=== PATIENT | male | born 1995 | race American Indian/Alaskan Native ===

== ENCOUNTER 2018-03-19 22:15 | Emergency (ER) | payer OTHER ==
[2018-03-19 23:17] VITALS: BP 107/78
[2018-03-19] MEDS ORDERED: TENIVAC IM ONE (23:22)
[2018-03-20] MEDS ORDERED: ceFAZolin 2 GM in NACL 0.9% 100 ML IV ONE
--- NOTE | 2018-03-20 00:16 | XRay Report ---
FINAL REPORT EXAM: XR TIBIA FIBULA 2V LT HISTORY: laceration TECHNIQUE: Four views of the left tibia-fibula were submitted. FINDINGS: There is no evidence of fracture or dislocation. The soft tissues are unremarkable. IMPRESSION: Within normal limits.
--- NOTE | 2018-03-20 00:17 | XRay Report ---
FINAL REPORT EXAM: XR CHEST 1V AP HISTORY: laceration TECHNIQUE: A single view of the chest was obtained. FINDINGS: The heart size and mediastinum appear normal. The lungs are clear. Pleural fluid is not seen. The skeletal structures do not show any acute changes. IMPRESSION: No acute cardiopulmonary process.
--- NOTE | 2018-03-20 00:17 | XRay Report ---
FINAL REPORT EXAM: XR ELBOW 3+V LT HISTORY: laceration TECHNIQUE: Three views of the left elbow were obtained. FINDINGS: There is soft tissue swelling overlying the dorsal aspect of the elbow. There is no evidence of fracture or dislocation. Joint fluid is not seen. IMPRESSION: Soft tissue swelling overlying the dorsal aspect of the elbow. No associated fracture.
[2018-03-20 00:53] LABS: Hematocrit 41.2 % (35.5-45.6); Hemoglobin 14.3 gm/dl (11.8-15.2); Mean Corpuscular HGB Conc 35 % (32-34); Mean Corpuscular Hemoglobin 31 pg (28-32); Mean Corpuscular Volume 90 fl (84-94); Platelet Count 206 K/mm3 (140-440); Red Cell Distribution Width 13.3 % (13.2-15.2)
[2018-03-20 01:03] LABS: INR 0.94 (0.87-1.13)
[2018-03-20 01:04] LABS: Partial Thromboplastin Time 29.6 Sec. (24.2-36.6)
[2018-03-20 01:11] LABS: Alanine Aminotransferase 15 units/L (7-56); Albumin 4.6 g/dL (3.9-5); BUN/Creatinine Ratio 16; Blood Urea Nitrogen 13 mg/dL (9-20); Calcium 8.9 mg/dL (8.4-10.2); Hemolysis Index 28
[2018-03-20 01:33] LABS: Basophils % (Manual) 0 % (0.0-1.8); Eosinophils % (Manual) 0 % (0.0-4.3); Myelocytes # (Manual) 0.1 K/mm3; Promyelocytes # (Manual) 0.1 K/mm3; Total Cells Counted 100
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
[2018-03-20] MEDS ORDERED: PERCOCET 5/325 PO ONE (03:42)
[2018-03-20] MEDS ORDERED: MORPHINE ONE (04:27)
[2018-03-20] MEDS ORDERED: MORPHINE IM ONE (04:27)
--- NOTE | 2018-03-20 06:17 | XRay Report ---
FINAL REPORT EXAM: XR HAND 3+V RT HISTORY: laceration TECHNIQUE: Three views of the right hand were obtained. FINDINGS: There is soft tissue fullness around the thumb within overlying bandage in place. There no evidence of fracture or radiopaque foreign body. The wrist joint is not show any acute changes. IMPRESSION: Soft tissue fullness around the thumb. No evidence of radiopaque foreign body or fracture.
== END 2018-03-20 05:50 | disposition home or self-care (01) ==
LOC: ED 22:15
DX: S61.011A Laceration without foreign body of right thumb without damage to nail, initial encounter (principal); S41.112A Laceration without foreign body of left upper arm, initial encounter; S81.812A Laceration without foreign body, left lower leg, initial encounter; S21.119A Laceration without foreign body of unspecified front wall of thorax without penetration into thoracic cavity, initial encounter; F17.200 Nicotine dependence, unspecified, uncomplicated; F12.10 Cannabis abuse, uncomplicated; W25.XXXA Contact with sharp glass, initial encounter; Y93.89 Activity, other specified; Y92.89 Other specified places as the place of occurrence of the external cause; Y99.8 Other external cause status
CPT/HCPCS: 12004; 36415; 71045; 73080; 73130; 73590; 73706; 80053; 85007; 85025; 85610; 85730; 90471; 90714; 96365; 96372; 99284; J0690; J2270; Q9967